=== PATIENT | male | born 1945 | race Caucasian/White ===

== ENCOUNTER 2018-12-08 08:35 | Day surgery (SDC) | payer MEDICARE, SELFPAY ==
[2018-12-08] MEDS: PROPARACAINE 0.5% OPHTH SOL 2 DROPS EYE-OP (09:43)
[2018-12-08] MEDS: CATARACT EYE COMPOUND (10 DROPS/SYRINGE) 3 DROPS EYE-OP (09:50)
[2018-12-08 09:51] VITALS: BMI 29.2
--- NOTE | 2018-12-08 10:01 | SUR.PREOP ---
red area under lt pupil noted
--- NOTE | 2018-12-08 10:33 | PM.PREOP ---
Pre-operative Note Interval Note History & Physical reviewed/Exam performed by Physician: No Changes to H&P: No
--- NOTE | 2018-12-08 10:34 | P.OP_ITS ---
Operative Date/Time/Diagnoses Pre-op diagnosis: Nuclear Cataract Left eye Post-op diagnosis: same Procedure & Clinicians Surgeon: Landry Merritt Anesthesia Type: MAC +/- and Sedation Operative Notes Procedure in detail: Patient brought to the operating suite. Tetracaine drops placed in the left eye. Patient was prepped and draped in sterile manner. Wire lid speculum was placed in the eye. Betadine drops were placed on the eye. This was irrigated. Lidocaine jelly was placed on the eye. A paracentesis port was created with a side-port blade. 0.1 mL 1% preservative free lidocaine was injected into the anterior chamber. The anterior chamber was deepened with viscoelastic. 2.6 mm keratome was used to create a temporal clear corneal incision. Cystotome and Utrata forceps were used to create continuous tear capsulorrhexis. Balanced salt solution was used to hydro dissect the nucleus. The phacoemulsification handpiece was inserted and the nucleus was removed using the stop and chop technique. The irrigation aspiration handpiece was inserted and the remaining cortex was removed. Anterior chamber was deepened with viscoelastic. An Vieyra ZCB00 intraocular lens with a power of 21.0 was injected into the capsular bag. Irrigation aspiration handpiece was inserted and the remaining viscoelastic was removed. Incision was hydrated with balanced salt solution and found to be leak free with pressure with Weck- Marimar sponges. 0.1 mL Vigamox injected anterior chamber. 0.3 mL Kenalog 10 mg was injected subconjunctivally. Lid speculum was removed. The patient left the operating room in excellent condition. Complications: none Condition: stable Disposition: same day surgery
[2018-12-08] MEDS: PHENYLEPHRINE/LIDOCAINE VIAL (OR) 0.2 ML EYE-OP (10:45)
[2018-12-08] MEDS: MOXIFLOXACIN OPHTH DROPS 3 ML BOTTLE 2 DROPS INJ (10:45)
[2018-12-08] MEDS: LIDOCAINE JELLY 2% 5 ML 1 APPLIC TOP (10:46)
[2018-12-08] MEDS: TRIAMCINOLONE 50 MG/5 ML VIAL INJ (10:46)
[2018-12-08] MEDS: CHONDROIDTIN/SOD HYALURONATE 1.05 ML SYRINGE INTRAOCULA (10:46)
[2018-12-08] MEDS: BALANCED SALT IRRIG SOLN NO.2 500 ML, EPINEPHrine 1 MG IRR (10:47)
[2018-12-08] MEDS: TETRACAINE 0.5% OPHTH DROPS 4 ML 2 DROPS EYE-OP (10:47)
[2018-12-08 11:00] VITALS: BP 138/72; PULSE 67; RESP 16; TEMP 36.3; O2SAT 99
[2018-12-08 11:17] VITALS: BP 141/79; PULSE 69; RESP 16; TEMP 36.7
== END 2018-12-08 11:20 ==
LOC: OR 08:37
PROVIDERS: Visit Provider Ophthalmology
DX: H25.12 Age-related nuclear cataract, left eye (principal); I10 Essential (primary) hypertension; I48.91 Unspecified atrial fibrillation
CPT/HCPCS: J0171; J2250; J3010; J3301

== ENCOUNTER → 2022-03-26 09:01 | Outpatient (CLI) | payer MEDICARE, SELFPAY ==
--- NOTE | 2022-03-26 | DI.ECHO.S_ITS ---
[facility] +---------+ : : [address] : [place] : : : : [id number] : : : : Phone: [phone]+ Echocardiogram Report + + :Name: DANYA FARRELL Study Date: 03/26/2022 Height: 66 in : :[facility] ReadingLocation: Weight: 170 lb : : Gender: Male BSA: 1.9 m2 : :: 1945 Age: 76 yrs BP: 177/80 mmHg: :Reason For Study: MURMUR : :Ordering Physician: YRN, : :IRA Performed By: Lilia Andrews : :Referring: IRA POOL : + + Interpretation Summary 1) Normal left ventricular thickness, size, wall motion, and systolic function (EF 60-65%). 2) Normal right ventricular size and function. 3) There is mild aortic stenosis (valve area 1.5cm2, mean gradient 16mmHg, severity ratio 0.46). 4) Hypertension present during the study (BP 177/80mm Hg). 5) No prior Echo available for comparison. Procedure: A two-dimensional transthoracic echocardiogram with color flow and Doppler was performed. The study quality was technically adequate. There is no prior echocardiogram noted for this patient. The patient was in sinus rhythm with heart rates between 58-62 bpm during the exam. Left Ventricle: The left ventricle is normal in size and wall thickness. The ejection fraction is estimated to be 60-65%. Diastolic parameters suggest a pseudonormalization pattern, consistent with probable elevated filling pressures. Right Ventricle: The right ventricle is normal in size and function. Atria: The left atrium is borderline dilated. Right atrial size is normal. There is no Doppler evidence for an interatrial shunt. Mitral Valve: The mitral valve is normal in structure and function. There is trace mitral regurgitation. Aortic Valve: The aortic valve is moderately calcified. There is mildly reduced leaflet mobility. There is mild aortic stenosis. The peak aortic velocity is 2.5 m/sec. The aortic valve mean gradient is 16 mmHg. The calculated aortic valve area is 1.5 cm2. No aortic regurgitation is present. Tricuspid Valve: The tricuspid valve is normal in structure and function. There is trace tricuspid regurgitation. Pulmonary artery pressures cannot be estimated because of the lack of a measurable TR jet velocity. Pulmonic Valve: The pulmonic valve is not well seen, but is grossly normal. There is a trace or physiologic amount of pulmonic regurgitation. Great Vessels: The aortic root is normal size. The dimensions of the ascending aorta are normal. The IVC is of normal diameter and collapses greater than 50% with a sniff. This suggests a low right atrial pressure of 3 mm Hg. Pericardium/ Pleura There is no pericardial effusion. There is no pleural effusion. MMode/2D Measurements & Calculations LVIDd: 5.2 cm LVOT diam: 2.3 cm LVIDs: 3.2 cm Ao root diam: 3.5 cm FS: 39.6 % asc Aorta Diam: 3.0 cm IVSd: 0.65 cm Ao Arch Diam (Prox Trans): 2.7 cm LVPWd: 0.81 cm LV luevano. diameter/BSA (cm/m^2): 2.8 LV sys. diameter/BSA (cm/m^2): 1.7 LA A2 area: 20.3 cm2 RA long axis: 5.2 cm LA A4 area: 17.1 cm2 RA area: 15.3 cm2 LA length (vol): 4.7 cm RA vol: 38.3 ml LA vol: 62.2 ml RA : 20.5 ml/m2 LA vol index: 33.3 ml/m2 IVC diam: 1.1 cm RVD1 (basal): 3.3 cm RVD2 (mid): 3.2 cm TAPSE: 2.4 cm Doppler Measurements & Calculations Ao V2 max: 249.4 cm/sec LVOT Max Julian: 90.1 cm/sec Ao V2 mean: 183.2 cm/sec LV V1 max P.2 mmHg Ao max P.3 mmHg LV V1 VTI: 23.4 cm Ao mean P.5 mmHg [place](I,D): 1.5 cm2 Ao V2 VTI: 64.6 cm [place](V,D): 1.5 cm2 sev ratio: 0.36 [place] indexed to BSA (cm^2/m^2): 0.81 MV E max julian: 110.4 cm/sec PA V2 max: 128.5 cm/sec MV A max julian: 106.8 cm/sec PA V2 mean: 95.4 cm/sec MV E/A: 1.0 PA mean P.9 mmHg Med Peak E' Julian: 6.0 cm/sec PA pr(Accel): 31.0 mmHg E/E' med: 18.3 Lat Peak E' Julian: 8.2 cm/sec E/E' lat: 13.5 E/e' average: 15.9 MV dec time: 0.22 sec SV(OT): 97.2 ml Reading Physician:02:02 PM
== END ==
PROVIDERS: PCP Nurse Practitioner Family; Referring Provider Nurse Practitioner Family; Visit Provider Nurse Practitioner Family
DX: R01.1 Cardiac murmur, unspecified (principal); I35.0 Nonrheumatic aortic (valve) stenosis
CPT/HCPCS: 93306